=== PATIENT | male | born 1990 | race Caucasian/White ===

== ENCOUNTER 2021-03-27 17:52 | Emergency (ER) | payer OTHER ==
[2021-03-27] MEDS ORDERED: VENTOLIN HFA 66.7 GM INH (22:03)
[2021-03-27] MEDS ORDERED: FLOVENT HFA12 G1 INH (22:04)
[2021-03-27] MEDS ORDERED: TESSALON PERLE100 MG PO (22:05)
== END 2021-03-27 22:20 | disposition home or self-care (01) ==
LOC: ER1 17:52
DX: U07.1 COVID-19 (principal); Z90.49 Acquired absence of other specified parts of digestive tract; F17.290 Nicotine dependence, other tobacco product, uncomplicated
CPT/HCPCS: 0240U; 87081; 87880; 99283

== ENCOUNTER 2021-08-27 14:09 | Emergency (ER) | payer OTHER ==
[~2021-08-27 14:09] MED LIST: FLOVENT HFA12 G1 INH; TESSALON PERLE100 MG PO; VENTOLIN HFA 66.7 GM INH
[2021-08-27 14:44] LABS: HEMOGLOBIN 15.9 gm/dl (14.0-17.5); RED BLOOD COUNT 5.05 M/UL (4.20-5.50); WHITE BLOOD COUNT 7.3 K/UL (4.5-11.0)
[2021-08-27 15:06] LABS: BUN/CREATININE RATIO 14 (0-10)
[2021-08-27] MEDS ORDERED: BENTYL 20MG TAB20 MG PO (17:19)
[2021-08-27] MEDS ORDERED: ZOFRAN ODT 4 MG4 MG SL (17:19)
== END 2021-08-27 18:57 | disposition home or self-care (01) ==
LOC: ER1 14:09
PROVIDERS: Physician Assistant
DX: R10.11 Right upper quadrant pain (principal); R11.2 Nausea with vomiting, unspecified; R19.7 Diarrhea, unspecified; R10.811 Right upper quadrant abdominal tenderness; Z90.89 Acquired absence of other organs
CPT/HCPCS: 76705; 80053; 82150; 83690; 85025; 96374; 96375; 99284; J2270; J2405